=== PATIENT | male | born 1990 | race Caucasian/White ===

== ENCOUNTER 2019-09-05 15:00 | Emergency (ER) | payer OTHER ==
[2019-09-05 15:03] VITALS: RESP 20; TEMP 98.6
--- NOTE | 2019-09-05 15:05 | ED ---
Wound/Laceration HPI - General Chief Complaint: Wound/Laceration Stated Complaint: leg lac Time Seen by Provider: 09/05/19 15:04 Source: patient Mode of arrival: ambulatory Limitations: no limitations - History of Present Illness Initial Comments: Patient is a 28-year-old male presenting to emergency Department with chief complaint laceration. Patient reports incident occurred about one hour prior to ED arrival. Patient states she was using a chainsaw and lacerated the anterior aspect of his right thigh superior to the right knee. Denies any numbness or tingling. Does report some active bleeding which has since subsided. No blood thinners. Tetanus up-to-date. Full range of motion in the knee. - Related Data Allergies Allergy/AdvReac Type Severity Reaction Status Date / Time No Known Allergies Allergy Verified 09/05/19 15:03 Review of Systems ROS Statement: Those systems with pertinent positive or pertinent negative responses have been documented in the HPI. ROS Other: All systems not noted in ROS Statement are negative. Past Medical History Past Medical History: No Reported History Past Surgical History: No Surgical Hx Reported Past Psychological History: No Psychological Hx Reported Smoking Status: Never smoker Past Alcohol Use History: Occasional Past Drug Use History: None Reported General Exam Limitations: no limitations General appearance: alert, in no apparent distress Head exam: Present: atraumatic, normocephalic, normal inspection Eye exam: Present: normal appearance, PERRL, EOMI Pupils: Present: normal accommodation ENT exam: Present: normal exam, normal oropharynx, mucous membranes moist, TM's normal bilaterally, normal external ear exam Neck exam: Present: normal inspection, full ROM Respiratory exam: Present: normal lung sounds bilaterally Cardiovascular Exam: Present: regular rate, normal rhythm, normal heart sounds Extremities exam: Present: full ROM (Full range of motion with extension and flexion of the right knee.), tenderness (Minimal tenderness at the site of injury.), normal capillary refill, other (+2 dorsalis pedis and posterior tibialis bilaterally.). Absent: normal inspection (3 cm laceration on the anterior aspect of the right upper leg, superior to the right knee. No visible foreign body.) Back exam: Present: normal inspection, full ROM Neurological exam: Present: alert, oriented X3 Psychiatric exam: Present: normal affect, normal mood Skin exam: Present: warm, dry, intact, normal color Course Vital Signs 09/05/19 15:01 Temperature 98.6 F Pulse Rate 117 H Respiratory 20 Rate Blood Pressure 167/94 O2 Sat by Pulse 96 Oximetry Procedures - Laceration Laceration #1 Consent Obtained: verbal consent Indication: laceration Site: lower extremity Size (cm): 3 Description: irregular Depth: simple, single layer Sedation/Analgesia: none Anesthetic Used: lidocaine 1% Anesthesia Technique: local infiltration Amount (mls): 5 Pre-repair: wound explored, irrigated extensively Type of Sutures: nylon Size of Sutures: 4-0 Number of Sutures: 7 Technique: simple, interrupted Patient Tolerated Procedure: well, no complications Medical Decision Making - Medical Decision Making Patient is a 28-year-old male presenting to emergency Department with a chief complaint of laceration. Patient has full range of motion in the right knee with extension and flexion. Patient is up-to-date on his tetanus. Laceration site was repaired with 7 sutures. Patient advised to return to the ED for removal in 14 days. X-ray reveals no foreign bodies. Return parameters dis cussed with patient is understanding and agreeable. Case discussed with physician. Disposition Clinical Impression: Laceration Disposition: HOME SELF-CARE Condition: Stable Instructions (If sedation given, give patient instructions): Care For Your Stitches (DC), Laceration (DC) Additional Instructions: Return to emergency department in 14 days for suture removal. Follow laceration instruction. Is patient prescribed a controlled substance at d/c from ED?: No Referrals: Remi Mckeon DO [Primary Care Provider] - 1-2 days Time of Disposition: 16:03
[2019-09-05] MEDS ORDERED: LIDOCAINE 1% INJ 10MG/ML (20 ML MDV) SQ ONE (15:28)
--- NOTE | 2019-09-05 15:37 | XR ---
EXAMINATION TYPE: XR knee limited RT DATE OF EXAM: 09/05/2019 CLINICAL HISTORY: Cut Injury with pain. TECHNIQUE: Two views of the right knee are obtained. COMPARISON: Prior right knee x-ray May 01, 2014.. FINDINGS: There is no acute fracture/dislocation evident in the right knee. The tri-compartment bette nt spaces appear within normal limits. There is linear lucency consistent with laceration injury supe rior to the patella. No suspicious radiodense foreign body is present. IMPRESSION: As above.
[2019-09-05 16:06] VITALS: BP 136/78; PULSE 74
== END 2019-09-05 16:12 | disposition home or self-care (01) ==
LOC: EC 15:00
DX: S81.811A Laceration without foreign body, right lower leg, initial encounter (principal); W31.2XXA Contact with powered woodworking and forming machines, initial encounter
CPT/HCPCS: 73560; 99283; 12002; J2001